=== PATIENT | female | born 1955 | race Caucasian/White ===

== ENCOUNTER 2018-08-09 12:08 | Emergency (ER) | payer MEDICAID | END 2018-08-09 14:17 | disposition home or self-care (01) | LOC: FTE 12:08 | DX: M19.011 Primary osteoarthritis, right shoulder (principal); E11.9 Type 2 diabetes mellitus without complications; I10 Essential (primary) hypertension | CPT/HCPCS: 73030; 73030-RT; 73060-RT; 73090-RT; 73130-RT; 99283-25 ==